=== PATIENT | male | born 1995 | race Two or more races ===

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

== ENCOUNTER 2017-06-13 04:12 | Emergency (ER) | payer MEDICAID ==
[~2017-06-13] VITALS: Ht 165.1 cm; Wt 68.0 kg
[2017-06-13 04:35] VITALS: BP 124/105
== END 2017-06-13 07:15 | disposition left against medical advice (07) ==
LOC: EDBD 04:12 → ER 04:15
DX: R10.9 Unspecified abdominal pain (principal); Z53.21 Procedure and treatment not carried out due to patient leaving prior to being seen by health care provider